=== PATIENT | female | born 1940 | race Caucasian/White ===

== ENCOUNTER → 2017-06-02 | Outpatient (CLI) | payer OTHER ==
[2017-06-02 12:57] LABS: BASO % 0.2 %; BASO ABS # 0.02 K/uL (0-0.2); EOS % 2.7 %; EOS ABS # 0.22 K/uL (0-0.5); HEMATOCRIT 43.4 % (37-47); HEMOGLOBIN 14.2 g/dL (12.0-16.0); IG# 0.02 K/uL (0.00-0.02); LYMPH % 40.3 %; LYMPH ABS # 3.29 K/uL (1.2-3.4); MEAN CELL VOLUME 87.5 fL (80-100); MEAN CORPUSCULAR HEMOGLOBIN 28.6 pg (25-34); MEAN CORPUSCULAR HGB CONC 32.7 g/dl (32-36); MEAN PLATELET VOLUME 11.5 fL (7.4-10.4); MONO % 9.7 %; MONO ABS # 0.79 K/uL (0.11-0.59); NEUT % 46.9 %; NEUT ABS # 3.83 K/uL (1.4-6.5); PLATELET COUNT 234 K/uL (130-400); RED CELL DISTRIBUTION WIDTH CV 14.2 % (11.5-14.5); RED CELL DISTRIBUTION WIDTH SD 45.5 fL (36.4-46.3); WHITE BLOOD COUNT 8.17 K/uL (4.8-10.8)
[2017-06-02 13:20] LABS: HEMOGLOBIN A1C 8.6 % (4.5-5.6)
[2017-06-02 14:33] LABS: ALBUMIN 3.5 gm/dl (3.4-5.0); ALT/SGPT 17 U/L (12-78); BLOOD UREA NITROGEN 11 mg/dl (7-18); CALCIUM 9.4 mg/dl (8.5-10.1); CARBON DIOXIDE 28 mmol/L (21-32); CHOLESTEROL 141 mg/dl (0-200); GLUCOSE 143 mg/dl (70-99); POTASSIUM 4.2 mmol/L (3.5-5.1); SODIUM 140 mmol/L (136-145)
[2017-06-02 14:36] LABS: ALKALINE PHOSPHATASE 70 U/L (45-117); AST/SGOT 18 U/L (15-37); LDL CHOLESTEROL CALCULATED 65 mg/dl
== END | disposition home or self-care (01) ==
LOC: C.LABMFLN 07:15
PROVIDERS: ATTEND Family Medicine
DX: E11.9 Type 2 diabetes mellitus without complications (principal); E78.2 Mixed hyperlipidemia; E55.9 Vitamin D deficiency, unspecified; I48.0 Paroxysmal atrial fibrillation

== ENCOUNTER → 2017-10-12 | Outpatient (CLI) | payer OTHER ==
[2017-10-12 13:29] LABS: HEMOGLOBIN A1C 7.6 % (4.5-5.6)
== END | disposition home or self-care (01) ==
LOC: C.LABMFLN 07:10
PROVIDERS: ATTEND Family Medicine
DX: E11.9 Type 2 diabetes mellitus without complications (principal)

== ENCOUNTER → 2017-10-20 | Outpatient (CLI) | payer OTHER | END | disposition home or self-care (01) | LOC: C.LABMFLN 12:16 | PROVIDERS: ATTEND Family Medicine | DX: R35.0 Frequency of micturition (principal); L60.3 Nail dystrophy ==